=== PATIENT | female | born 1930 | race Caucasian/White ===

== ENCOUNTER → 2017-08-31 | Outpatient (CLI) | payer OTHER ==
[~2017-08-31] MED LIST: ACET-1138 PO; AMB5 PO; AMLO2.5T PO; CLC100 PO; CMD/25 PO; CRD200 PO; DENO60SO IM; DIPH25CA50 PO; DLCS PR; FRRG PO; LISI-725 PO; LSN20 PO; METR1GEL3 TOP; MLXESC PO; MOMLX PO; MULTTAB58 PO; NRV5 PO; OXYSR10 PO; PRT40 PO; RXC5 PO; SNK PO
--- NOTE | 2017-09-01 07:42 | MAMMOGRAPHY REPORT ---
BILATERAL DIGITAL SCREENING MAMMOGRAM WITH CAD: 08/31/2017 CLINICAL HISTORY: Routine screening. Patient has no complaints. TECHNIQUE: Bilateral CC, MLO and right XCCL views were obtained. Current study was also evaluated wi th a Computer Aided Detection (CAD) system. COMPARISON: Comparison is made to exams dated: 08/27/2016 mammogram, 07/30/2015 mammogram, 07/04/2014 mammogram, 12/15/2013 mammogram, 06/14/2013 mammogram, and 06/08/2013 mammogram - [facility]. BREAST COMPOSITION: There are scattered areas of fibroglandular density in both breasts. FINDINGS: No suspicious mass, architectural distortion or cluster of microcalcifications is seen. IMPRESSION: ACR BI-RADS CATEGORY 1: NEGATIVE There is no mammographic evidence of malignancy. A 1 year screening mammogram is recommended. The pa tient will receive written notification of the results. Approximately 10% of breast cancers are not detected with mammography. A negative mammographic report should not delay biopsy if a clinically suggestive mass is present. Mya Delgado M.D. ay/:08/31/2017 15:17:08 Maintenance Team Leader: Larissa PUENTE(R)(M)(BD), [facility] letter sent: Normal 1/2 BI-RADS Code: ACR BI-RADS Category 1: Negative
== END | disposition home or self-care (01) ==
LOC: C.MAMM 13:51
PROVIDERS: ATTEND Family Medicine
DX: Z12.31 Encounter for screening mammogram for malignant neoplasm of breast (principal)

== ENCOUNTER 2018-05-13 16:32 | Emergency (ER) | payer OTHER ==
[~2018-05-13] VITALS: Ht 160 cm; Wt 54.4 kg
[~2018-05-13 16:32] MED LIST changes: +LISI-726 PO; -LSN20 PO; +PANT1TAB4 PO; -PRT40 PO
[2018-05-13 17:02] VITALS: Ht 160 cm; Wt 54.4 kg
[2018-05-13] MEDS ORDERED: LISI-730 (17:36)
[2018-05-13] MEDS ORDERED: WARF-280 (17:36)
[2018-05-13 18:03] VITALS: O2SAT 98
[2018-05-13 18:25] LABS: HEMOGLOBIN 13.8 g/dL (12.0-16.0); IG# 0.08 K/uL (0.00-0.02); LYMPH % 4.1 %; LYMPH ABS # 0.79 K/uL (1.2-3.4); MEAN CELL VOLUME 93.8 fL (80-100); MEAN CORPUSCULAR HEMOGLOBIN 30.8 pg (25-34); MEAN CORPUSCULAR HGB CONC 32.9 g/dl (32-36); MEAN PLATELET VOLUME 9.5 fL (7.4-10.4); MONO % 1.6 %; NEUT % 93.9 %; NEUT ABS # 18.02 K/uL (1.4-6.5); PLATELET COUNT 287 K/uL (130-400); RED CELL DISTRIBUTION WIDTH CV 14.3 % (11.5-14.5); WHITE BLOOD COUNT 19.19 K/uL (4.8-10.8)
[2018-05-13 18:37] LABS: ALBUMIN 3.7 gm/dl (3.4-5.0); CALCIUM 8.8 mg/dl (8.5-10.1); CREATININE 1.05 mg/dl (0.60-1.20); POTASSIUM 3.8 mmol/L (3.5-5.1); TOTAL PROTEIN 6.8 gm/dl (6.4-8.2)
[2018-05-13] MEDS ORDERED: OPTIRAY 320 IV PRN (19:00)
--- NOTE | 2018-05-13 20:37 | DIAGNOSTIC IMAGING REPORT ---
CT ABD/PELVIS IV AND ORAL CONT CLINICAL HISTORY: Left lower quadrant abdominal pain COMPARISON STUDY: None. TECHNIQUE: Following the IV administration of 115 mL of Optiray-320, CT scan of the abdomen and pelvis was performed from the lung bases to the proximal femurs. Images are reviewed in the axial, sagittal, and coronal planes. IV contrast was administered without complication. A dose lowering technique was utilized adhering to the principles of ALARA. CT DOSE: 249.71 mGy.cm FINDINGS: Lower chest: The heart is mildly enlarged. There are dependent atelectatic changes. Liver: The contrast-enhanced liver is normal in size, contour, and attenuation. There is no intrahepatic biliary ductal dilatation. The hepatic veins and portal veins are patent. Gallbladder: Unremarkable. Spleen: Normal in size and attenuation. Pancreas: There is mild pancreatic ductal dilatation measures 4.8 mm. There is mild dilatation of the common bile duct which measures 8 mm. A discrete obstructing lesion is not visualized. There are 2 cystic lesions within the pancreatic tail measuring 6 mm and 4 mm respectively. Adrenal glands: Unremarkable. Kidneys: There are bilateral subcentimeter renal cysts. No solid renal masses are visualized. There is no hydronephrosis. Bowel: There is marked bowel wall thickening involving the proximal descending colon. There is infiltration surrounding fat. There is adjacent fluid within the left paracolic gutter. The findings are indicative of a nonspecific colitis (infectious versus inflammatory versus ischemic). Peritoneum: There is no free intraperitoneal air. There is a small amount of ascitic fluid surrounding the liver and within the left paracolic gutter. There is a tiny fat-containing left inguinal hernia Vasculature: No significant stenotic lesions of the superior mesenteric or celiac origins are visualized on this nonangiographic study. Adenopathy: None. Pelvic viscera: The bladder, and pelvic viscera are unremarkable. Skeletal structures: There are advanced degenerative changes within the lumbar spine with fragmented lateral osteophytes and endplate irregularity at the L2-3 and L3-4 levels. IMPRESSION: 1. Marked bowel wall thickening involving the proximal descending colon with infiltration of the surrounding fat and adjacent peritoneal fluid. The findings are indicative of a nonspecific colitis. 2. Mild pancreatic ductal dilatation, and mild dilatation of the common bile duct. No pancreatic head masses or ampullary masses are visualized on CT scanning. Electronically signed by: Helder Chi M.D. 05/13/2018 8:36 PM Dictated Date/Time: 05/13/2018 8:27 PM
[2018-05-13] MEDS ORDERED: SODIUM CHLORIDE 0.9% 500ML 500 ML IV STA (20:49)
[2018-05-13] MEDS ORDERED: CIPROFLOXACIN 400MG / 200ML D5W IV STA (21:43)
[2018-05-13] MEDS ORDERED: CIPR-255 PO (21:47)
--- NOTE | 2018-05-13 21:50 | EMERGENCY ROOM VISIT NOTE ---
ED Visit Note First contact with patient: 21:49 The patient was seen and examined with josh. I agree with the history, physical and findings. Please see the note for disposition and details.
--- NOTE | 2018-05-13 21:54 | EMERGENCY ROOM VISIT NOTE ---
History First contact with patient: 17:13 Chief Complaint: ABDOMINAL PAIN Stated Complaint: ABD PAIN History of Present Illness The patient is a 87 year old female who presents to the Emergency Room with complaints of diarrhea 2 weeks and abdominal pain which began today. Patient states she has been having very loose bowel movements for the past 2 weeks. She states yesterday that improved, however today she began experience in left lower quadrant and suprapubic abdominal pain. The patient states the pain is "like you really have to go but cannot". She rates at 4/10. The patient denies any constipation, nausea, vomiting, fever, or chills. She denies any dysuria or pain with defecation. She denies any hematuria or hematochezia. The patient denies any changes in her appetite or diet. She denies any exposures to well water. She did see her PCP who took stool samples without any positive cultures. The patient denies a history of anything similar in the past. She states overall she has been feeling well, but became concerned due to the abdominal pain. She denies any abdominal surgeries. Review of Systems A complete 10 point review of systems was reviewed with the patient with pertinent positives and negatives as per history of present illness. All else were negative. Past Medical/Surgical History Medical Problems: (1) Atrial fibrillation (2) H/O benign neoplasm of colon (3) History of basal cell carcinoma (4) History of right bundle branch block (RBBB) (5) History of rosacea (6) Hypertension (7) Meningioma (8) Osteoarthritis (9) Osteoporosis Surgical Problems: (1) H/O colonoscopy (2) History of dental surgery (3) S/P tonsillectomy and adenoidectomy Social History Smoking Status: Former Smoker Alcohol Use: none Drug Use: none Marital Status: Housing Status: lives alone Occupation Status: retired Current/Historical Medications Scheduled Ciprofloxacin Hcl (Cipro), 500 MG PO BID Multiple Vitamin (Multivitamin), 1 TAB PO DAILY Miscellaneous Medications Lisinopril (Lisinopril) Warfarin Sodium (Warfarin Sodium) Physical Exam Vital Signs Date Time Temp Pulse Resp B/P (MAP) Pulse Ox O2 Delivery O2 Flow Rate FiO2 05/13/18 23:40 36.7 85 20 125/75 98 05/13/18 23:22 85 20 125/75 98 Room Air 7/26/18 21:21 95 20 123/73 99 Room Air 05/13/18 18:46 77 16 119/67 97 Room Air 05/13/18 18:03 98 Room Air 05/13/18 17:02 36.7 92 16 145/92 98 Room Air Physical Exam VITALS: Vitals are noted on the nurse's note and reviewed by myself. Vital signs stable. GENERAL: This is an 87-year-old white female, in no acute distress, nondiaphoretic, well-developed well-nourished. SKIN: The skin was without rashes, erythema, edema, or bruising. There is no tenting of the skin. Capillary reflex less than 2 seconds. HEAD: Normocephalic atraumatic. EARS: External auditory canals clear, tympanic membranes pearly calderon without erythema or effusion bilaterally. EYES: Pupils equal round and reactive to light and accommodation. Conjunctivae without injection, sclerae without icterus. Extraocular movements intact. NOSE: Patent, turbinates without inflammation or discharge. No sinus tenderness. MOUTH: Mucous membranes moist. Tonsils are not enlarged. Pharynx without erythema or exudate. Uvula midline. Airway patent. Tongue does not deviate. NECK: Supple without nuchal rigidity. No lymphadenopathy. No thyromegaly. Cervical spine is nontender. No JVD. HEART: Regular rate and rhythm without murmurs gallops or rubs. LUNGS: Clear to auscultation bilaterally without wheezes, rales or rhonchi. No dullness to percussion. No retractions or accessory muscle use. ABDOMEN: Positive bowel sounds x 4. Normal tympanic percussion. Soft, nontender, without masses or organomegaly. Cantu sign negative. No guarding or rebound tenderness. MUSCULOSKELETAL: No muscle atrophy, erythema, or edema noted. Full range of motion without joint tenderness in all extremities. No tenderness to palpation. Normal gait. Strength 5/5 throughout. NEURO: Patient was alert and oriented to person place and time. Normal sensation to light and sharp touch. Deep tendon reflexes 2+ throughout. No focal neurological deficits. Medical Decision & Procedures ER Provider Diagnostic Interpretation: CT ABD/PELVIS IV AND ORAL CONT CLINICAL HISTORY: Left lower quadrant abdominal pain COMPARISON STUDY: None. TECHNIQUE: Following the IV administration of 115 mL of Optiray-320, CT scan of the abdomen and pelvis was performed from the lung bases to the proximal femurs. Images are reviewed in the axial, sagittal, and coronal planes. IV contrast was administered without complication. A dose lowering technique was utilized adhering to the principles of ALARA. CT DOSE: 249.71 mGy.cm FINDINGS: Lower chest: The heart is mildly enlarged. There are dependent atelectatic changes. Liver: The contrast-enhanced liver is normal in size, contour, and attenuation. There is no intrahepatic biliary ductal dilatation. The hepatic veins and portal veins are patent. Gallbladder: Unremarkable. Spleen: Normal in size and attenuation. Pancreas: There is mild pancreatic ductal dilatation measures 4.8 mm. There is mild dilatation of the common bile duct which measures 8 mm. A discrete obstructing lesion is not visualized. There are 2 cystic lesions within the pancreatic tail measuring 6 mm and 4 mm respectively. Adrenal glands: Unremarkable. Kidneys: There are bilateral subcentimeter renal cysts. No solid renal masses are visualized. There is no hydronephrosis. Bowel: There is marked bowel wall thickening involving the proximal descending colon. There is infiltration surrounding fat. There is adjacent fluid within the left paracolic gutter. The findings are indicative of a nonspecific colitis (infectious versus inflammatory versus ischemic). Peritoneum: There is no free intraperitoneal air. There is a small amount of ascitic fluid surrounding the liver and within the left paracolic gutter. There is a tiny fat-containing left inguinal hernia Vasculature: No significant stenotic lesions of the superior mesenteric or celiac origins are visualized on this nonangiographic study. Adenopathy: None. Pelvic viscera: The bladder, and pelvic viscera are unremarkable. Skeletal structures: There are advanced degenerative changes within the lumbar spine with fragmented lateral osteophytes and endplate irregularity at the L2-3 and L3-4 levels. IMPRESSION: 1. Marked bowel wall thickening involving the proximal descending colon with infiltration of the surrounding fat and adjacent peritoneal fluid. The findings are indicative of a nonspecific colitis. 2. Mild pancreatic ductal dilatation, and mild dilatation of the common bile duct. No pancreatic head masses or ampullary masses are visualized on CT scanning. Electronically signed by: Helder Chi M.D. 05/13/2018 8:36 PM Dictated Date/Time: 05/13/2018 8:27 PM Laboratory Results 05/13/18 18:01 Red Blood Count 4.48, Mean Corpuscular Volume 93.8, Mean Corpuscular Hemoglobin 30.8, Mean Corpuscular Hemoglobin Concent 32.9, Mean Platelet Volume 9.5, Neutrophils (%) (Auto) 93.9, Lymphocytes (%) (Auto) 4.1, Monocytes (%) (Auto) 1.6, Eosinophils (%) (Auto) 0.0, Basophils (%) (Auto) 0.0, Neutrophils # (Auto) 18.02, Lymphocytes # (Auto) 0.79, Monocytes # (Auto) 0.30, Eosinophils # (Auto) 0.00, Basophils # (Auto) 0.00 05/13/18 18:01 Test 05/13/18 18:01 05/13/18 20:45 05/13/18 21:21 White Blood Count 19.19 K/uL (4.8-10.8) Red Blood Count 4.48 M/uL (4.2-5.4) Hemoglobin 13.8 g/dL (12.0-16.0) Hematocrit 42.0 % (37-47) Mean Corpuscular Volume 93.8 fL (80-100) Mean Corpuscular Hemoglobin 30.8 pg (25-34) Mean Corpuscular Hemoglobin Concent 32.9 g/dl (32-36) Platelet Count 287 K/uL (130-400) Mean Platelet Volume 9.5 fL (7.4-10.4) Neutrophils (%) (Auto) 93.9 % Lymphocytes (%) (Auto) 4.1 % Monocytes (%) (Auto) 1.6 % Eosinophils (%) (Auto) 0.0 % Basophils (%) (Auto) 0.0 % Neutrophils # (Auto) 18.02 K/uL (1.4-6.5) Lymphocytes # (Auto) 0.79 K/uL (1.2-3.4) Monocytes # (Auto) 0.30 K/uL (0.11-0.59) Eosinophils # (Auto) 0.00 K/uL (0-0.5) Basophils # (Auto) 0.00 K/uL (0-0.2) RDW Standard Deviation 49.0 fL (36.4-46.3) RDW Coefficient of Variation 14.3 % (11.5-14.5) Immature Granulocyte % (Auto) 0.4 % Immature Granulocyte # (Auto) 0.08 K/uL (0.00-0.02) Anion Gap 8.0 mmol/L (3-11) Est Creatinine Clear Calc Drug Dose 30.6 ml/min Estimated GFR () 54.9 Estimated GFR (Non- 47.4 BUN/Creatinine Ratio 19.2 (10-20) Calcium Level 8.8 mg/dl (8.5-10.1) Total Bilirubin 0.6 mg/dl (0.2-1) Aspartate Amino Transf (AST/SGOT) 22 U/L (15-37) Alanine Aminotransferase (ALT/SGPT) 25 U/L (12-78) Alkaline Phosphatase 67 U/L (45-117) Total Protein 6.8 gm/dl (6.4-8.2) Albumin 3.7 gm/dl (3.4-5.0) Globulin 3.1 gm/dl (2.5-4.0) Albumin/Globulin Ratio 1.2 (0.9-2) Lipase 141 U/L (73-393) Urine Color DK YELLOW Urine Appearance CLEAR (CLEAR) Urine pH 5.0 (4.5-7.5) Urine Specific [place] > 1.045 (1.000-1.030) Urine Protein TRACE (NEG) Urine Glucose (UA) NEG (NEG) Urine Ketones TRACE (NEG) Urine Occult Blood NEG (NEG) Urine Nitrite NEG (NEG) Urine Bilirubin NEG (NEG) Urine Urobilinogen NEG (NEG) Urine Leukocyte Esterase SMALL (NEG) Urine WBC (Auto) 5-10 /hpf (0-5) Urine RBC (Auto) 0-4 /hpf (0-4) Urine Hyaline Casts (Auto) 1-5 /lpf (0-5) Urine Epithelial Cells (Auto) 10-20 /lpf (0-5) Urine Bacteria (Auto) NEG (NEG) Urine Crystals CALCIUM OXALATE (NONE Bedside Lactic Acid Venous 1.08 mmol/L (0.90-1.70) Medications Administered Medications (Trade) Dose Ordered Sig/Grady Route Start Time Stop Time Status Last Admin Dose Admin Sodium Chloride 500 ml @ 999 mls/hr Q31M STAT IV 05/13/18 20:49 05/13/18 21:19 DC 05/13/18 21:04 999 MLS/HR Ciprofloxacin/ Dextrose (Cipro / D5W) 400 mg NOW STAT IV 05/13/18 21:43 05/13/18 21:46 DC 05/13/18 21:55 400 MG ED Course The patient was seen and evaluated as above. IV access obtained, labs drawn. Imaging performed and reviewed by myself and radiologist as above. Labs reviewed by myself. I discussed the findings with the patient at bedside. I discussed the case with my attending. The patient was given 500 cc bolus IV normal saline solution. She was given IV Cipro. Discharge instructions reviewed, the patient was discharged home in good condition. Medical Decision This is an 87-year-old female patient presents the emergency department today complaining of 2 week long history of diarrhea and new onset of left lower quadrant and suprapubic abdominal pain. The patient has been afebrile and does not appear systemically ill. She has been resting comfortably here in the emergency department and did not require any pain management or anti-emetics. Laboratory workup showed an elevated white blood cell count of 19,000. The patient's renal and hepatic function and electrolytes were without significant abnormality. Lipase was normal. Urinalysis was concerning for leukocyte esterase and white blood cells which in the setting of the patient's symptoms and white blood cell count are concerning for possible urinary tract infection. CT scan showed evidence for nonspecific colitis. The patient will be treated with Cipro to cover for possible intra-abdominal pathology as well as the urinary tract infection. She was given her first dose here in the emergency department. She will be sent home on a course of Cipro, and was encouraged to monitor her INR closely, as I did discuss with her the potential for interaction with her Coumadin. The patient verbalized understanding and agreement. All questions answered to patient's satisfaction prior to discharge. Etiologies such as appendicitis, diverticulitis, obstruction, inflammatory bowel disease, renal colic, PUD, biliary pathology, pancreatitis, mesenteric ischemia, aortic pathology, infections, genitourinary, UTI, perforated viscus, as well as others were entertained. The chart was completed utilizing [employer] voice recognition software. Grammatical errors, random word insertions, pronoun errors, and incomplete sentences are an occasional consequence of this system due to software limitations, ambient noise, and hardware issues. Any formal questions or concerns about the content, text, or information contained within the body of this dictation should be directly addressed to the provider for clarification. Medication Reconcilliation Current Medication List: was personally reviewed by me Blood Pressure Screening Patient's blood pressure: Normal blood pressure Impression Primary Impression: Urinary tract infection Additional Impression: Colitis Departure Information Dispostion Home / Self-Care Condition GOOD Prescriptions Ciprofloxacin Hcl (CIPRO) 500 Mg Tab 500 MG PO BID for 7 Days, #14 TAB Prov: Cheri Donato PA-C 05/13/18 Referrals Cristiana Graves D.O. (PCP) Patient Instructions ED Gastroenteritis Bacterial, ED UTI Cystitis Female, My [facility] Additional Instructions You have been treated in the Emergency Department your Abdominal Pain. Laboratory results and imaging studies have ruled out any emergent causes for your abdominal pain which would warrant admission or surgery. As discussed, does appear that you may have a slight gastrointestinal infection as well as a urinary tract infection. He will be started on antibiotics for these problems. You were prescribed Cipro to be taken twice daily. This is an antibiotic. All antibiotics have the potential to cause diarrhea. Stop this medication and contact a medical provider if you were to develop any significant adverse side effects including: wheezing, shortness of breath, passing out, vomiting, or a diffuse rash. Always take antibiotics as directed and COMPLETE the ENTIRE course regardless of the improvement of your symptoms. As discussed, you should monitor your INR closely, Cipro can increase the effectiveness of your Coumadin. For pain control, you can use the following [id number] medicines (if >12 yo): Acetaminophen(Tylenol) may be used for fever or pain. Use 1000mg every six hours as needed. Avoid using more than 3000mg in a 24 hour period. Drink plenty of water and stay well hydrated. As with any trip to the Emergency Department, you should follow-up with your Primary Care Provider from today's visit. Return to the emergency department if your symptoms persist despite treatment plan outlined above or if the following symptoms occur: increased fevers, chills , worsening nausea/vomiting, blood in your stool or urine. Problem Qualifiers Primary Impression: Urinary tract infection Urinary tract infection type: acute cystitis Hematuria presence: with hematuria Qualified Codes: N30.01 - Acute cystitis with hematuria
[2018-05-13 23:40] VITALS: BP 125/75; PULSE 85; TEMP 36.7; O2SAT 98
== END 2018-05-13 23:41 | disposition home or self-care (01) ==
LOC: C.EDB 16:33 → C.EDC 23:41
DX: K52.9 Noninfective gastroenteritis and colitis, unspecified (principal); N39.0 Urinary tract infection, site not specified; I48.91 Unspecified atrial fibrillation; I45.10 Unspecified right bundle-branch block; I10 Essential (primary) hypertension; M19.90 Unspecified osteoarthritis, unspecified site; M81.0 Age-related osteoporosis without current pathological fracture; Z87.891 Personal history of nicotine dependence; Z79.899 Other long term (current) drug therapy; Z79.01 Long term (current) use of anticoagulants